=== PATIENT | male | born 1995 | race Caucasian/White ===

== ENCOUNTER 2021-09-12 19:33 | Emergency (ER) | payer OTHER ==
[~2021-09-12] VITALS: Ht 175.3 cm; Wt 99.8 kg
--- NOTE | 2021-09-12 22:26 | NUR ---
PT BIBSELF C/O LEFT TESTICLE PAIN AND LEFT LEG NUMBNESS FOR A "COUPLE OF DAYS". PT AAOX4 BREATHING EVENLY AND UNLABORED. PT CHANGED INTO GOWN, ATTACHED TO MONITOR AND POX. MD AT BEDSIDE FOR EVAL. PT GIVEN BLANKET AND CALL LIGHT WITHIN REACH
--- NOTE | 2021-09-12 23:57 | NUR ---
[facility] hair in [facility] - 09/12/21 at 2358 by VIJAY PER US SHERYL GUZMÁN
--- NOTE | 2021-09-12 23:58 | NUR ---
PER XRAY, US EN ROUTE
--- NOTE | 2021-09-13 00:33 | NUR ---
US AT BEDSIDE
--- NOTE | 2021-09-13 01:03 | NUR ---
URINE SENT TO LAB
[2021-09-13] MEDS ORDERED: IBUP-1957 PO (01:05)
[2021-09-13 01:39] LABS: BILIRUBIN,URINE NEGATIVE (NEGATIVE); COLOR,URINE DARK YELLOW (YELLOW); LEUKOCYTE ESTERASE ,URINE NEGATIVE (NEGATIVE); NITRITE, URINE NEGATIVE (NEGATIVE); PROTEIN,URINE NEGATIVE (NEGATIVE); UGLUCOSE NEGATIVE (NEGATIVE); UROBILINOGEN,URINE 0.2 EU/dL (0.2)
[2021-09-13 01:47] LABS: BACTERIA,URINE None seen /HPF (None Seen); MUCUS,URINE Moderate /LPF (None Seen); RBC,URINE 0-2 /HPF (0-2); SQUAMOUS EPITHELIAL CELL,UR Few /HPF (None Seen); URINE AMORPHOUS URATE Few /HPF (None Seen); WBC,URINE 0-2 /HPF (0-3)
--- NOTE | 2021-09-13 02:03 | NUR ---
Patient discharged to home in stable condition. Written and verbal after care instructions given. Patient verbalizes understanding of instruction. Pt ambulatory with a steady gait
[2021-09-13 02:05] VITALS: BP 125/76
== END 2021-09-13 02:05 | disposition home or self-care (01) ==
LOC: ER 19:48
DX: S39.011A Strain of muscle, fascia and tendon of abdomen, initial encounter (principal); Z60.2 Problems related to living alone; X58.XXXA Exposure to other specified factors, initial encounter; Y93.89 Activity, other specified; Y92.89 Other specified places as the place of occurrence of the external cause; Y99.8 Other external cause status
CPT/HCPCS: 76870-TC; 81001